=== PATIENT | male | born 1970 | race Caucasian/White ===

== ENCOUNTER 2019-05-23 09:08 | Emergency (ER) | payer OTHER, BC ==
[2019-05-23 09:12] VITALS: BP 152/104; PULSE 75; RESP 18; TEMP 97.5
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
--- NOTE | 2019-05-23 09:55 | XR ---
EXAMINATION TYPE: XR tibia fibula LT DATE OF EXAM: 05/23/2019 COMPARISON: NONE HISTORY: Pain TECHNIQUE: Two views are submitted. FINDINGS: The osseous structures are intact. Postsurgical changes are seen with significant arthropathy of the knee. Subcortical edema along the posterior margin of the tibia likely chronic.. IMPRESSION: 1. No acute osseous abnormality.
--- NOTE | 2019-05-23 09:57 | XR ---
EXAMINATION TYPE: XR wrist complete RT DATE OF EXAM: 05/23/2019 COMPARISON: NONE HISTORY: Pain TECHNIQUE: Four views submitted. FINDINGS: There is displaced intra-articular fracture of the distal radius. Remaining osseous structures intact . IMPRESSION: 1. Displaced intra-articular fracture distal radius.
[2019-05-23] MEDS ORDERED: ACET/COD 300 MG/30 MG STARTER PACK 6 TAB BTL PO STA (10:22)
== END 2019-05-23 10:36 | disposition home or self-care (01) ==
LOC: EC 09:08
DX: S52.501A Unspecified fracture of the lower end of right radius, initial encounter for closed fracture (principal); S80.812A Abrasion, left lower leg, initial encounter; K21.9 Gastro-esophageal reflux disease without esophagitis; E78.5 Hyperlipidemia, unspecified; F17.200 Nicotine dependence, unspecified, uncomplicated; Z96.652 Presence of left artificial knee joint; Z79.899 Other long term (current) drug therapy; V89.2XXA Person injured in unspecified motor-vehicle accident, traffic, initial encounter; Y92.89 Other specified places as the place of occurrence of the external cause
CPT/HCPCS: 29125; 99283

== ENCOUNTER → 2022-08-27 | Outpatient (CLI) | payer BC ==
--- NOTE | 2022-08-27 09:37 | US ---
EXAMINATION TYPE: US abdomen complete DATE OF EXAM: 08/27/2022 COMPARISON: NONE CLINICAL HISTORY: K21.9 GERD. TECHNIQUE: Multiple sonographic images of the abdomen are obtained. 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 No acute abdomen ultrasound abnormality
== END | disposition home or self-care (01) ==
LOC: RADUSWWP 07:12
PROVIDERS: ATTEND Internal Medicine
DX: K21.9 Gastro-esophageal reflux disease without esophagitis (principal)
CPT/HCPCS: 76700

== ENCOUNTER 2022-09-03 10:13 | Day surgery (SDC) | payer BC ==
[2022-09-01 09:37] VITALS: BMI 27.9
[~2022-09-03 10:13] MED LIST: LACTATED RINGERS 1,000 ML IV SCH
[2022-09-03 11:34] VITALS: TEMP 97.1
[2022-09-03] MEDS ORDERED: LACTATED RINGERS 1,000 ML IV ONE (11:39)
[2022-09-03] MEDS ORDERED: LIDOCAINE 2% INJ 20 MG/ML (2 ML VIAL) ONE (12:24)
[2022-09-03] MEDS ORDERED: PROPOFOL 10 MG/ML 20 ML VIAL IV ONE (12:24)
--- NOTE | 2022-09-03 12:43 | P.PCN ---
Date of Procedure: 09/03/22 Procedure(s) Performed: BRIEF HISTORY: Patient is a 52-year-old, pleasant, in scheduled for an upper endoscopy as a part of evaluation of worsening reflux symptoms for the last several months duration. He does have long-standing history of GERD and has been on lansoprazole 30 mg daily.. PROCEDURE PERFORMED: Esophagogastroduodenoscopy with biopsy. PREOPERATIVE DIAGNOSIS: Long-standing history of GERD. IV sedation per anesthesia. PROCEDURE: After informed consent was obtained, the patient was brought into the endoscopy unit. IV sedation was administered by Anesthesia under continuous monitoring. Initially the Olympus GIF-140 video endoscope was inserted into the mouth. Esophagus intubated without any difficulty. It was gradually advanced into the stomach and duodenum and carefully examined. The bulb and the second part of the duodenum appeared normal. The scope at this time was withdrawn to the stomach, adequately insufflated with air, and upon careful examination, mucosa of the antrum, body, cardia and the fundus appeared normal. The scope was then withdrawn into the esophagus. Moderate size hiatal hernia noted. The GE junction was located at 33 cm from the incisors. It was a long segment of Green's esophagus extending from 28-30 cm from the incisors and multiple biopsies were done from this area. The were no erosions or ulcerations seen. Rest of esophagus appeared normal and the patient tolerated the procedure well. IMPRESSION: 1. 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 2. Moderate size hiatal hernia.. RECOMMENDATIONS: The findings of this examination were discussed with the patient as well as his family. He was advised to follow with the biopsy results. In the meantime he was changed to lansoprazole 30 mg half hour before dinnertime and follow antireflux measures.. If the biopsy confirms the presence of Green's esophagus he can have a repeat upper endoscopy in 3 years
[2022-09-03 13:24] VITALS: BP 145/82; PULSE 75; RESP 20
== END 2022-09-03 13:33 ==
LOC: ORWHC2ENDO 10:13
PROVIDERS: ATTEND Internal Medicine Gastroenterology
DX: K22.70 Barrett's esophagus without dysplasia (principal); K44.9 Diaphragmatic hernia without obstruction or gangrene; K21.00 Gastro-esophageal reflux disease with esophagitis, without bleeding; Z79.899 Other long term (current) drug therapy
CPT/HCPCS: 88305; 43239; J2704; J2001

== ENCOUNTER → 2024-09-26 | Outpatient (CLI) | payer BC ==
--- NOTE | 2024-09-26 13:59 | CA ---
Stress Echo Report Dimas Ugalde Age: 54 Gender: M : 1970 Exam Date: 09/26/2024 11:12 Exam Location: [place] [facility] Ht (in): 70 Wt (lb): 180 Ordering Physician: Ad Tejada DO Referring Physician: Ad Tejada DO [place]cass Splitter: Edie Olvera RDCS Technologist Procedure CPT: Indication: R07.89 other chest pain ICD-9 Codes: Rhythm: Patient History: CHEST PAIN, DIFFICULTY IN BREATHING, NUMBNESS IN FACE/NECK, FAMILY HX OF HEART DISEASE, HYPERCHOLESTEROLEMIA, PRIOR SMOKER Cardiac Medications: Medications in past 24 hours: Contrast: Stress Results Protocol: Mehdi Total dose(mL): Exercise Duration (min:sec): 10:[address] Depression (mm): Angina Score: Clifford Score: METS: 12.1 Resting HR: 74 Resting BP: 132 / 86 Peak HR: 134 Peak BP: 204 / 99 Max Predicted HR: 167 80 % Max Predicted HR Target HR: 142 Double Product: [id number] Stress Summary: BP Response: Reason for Termination: MAX EXERTION - UNABLE TO CONTINUE Cardiac Symptoms: NO SYMPTOMS ECG Analysis Resting ECG: Stress ECG: Arrhythmia: Echo Analysis Resting Echo: Peak Echo Analysis: MEASUREMENTS (Male/Female) Normal Values CONCLUSIONS Excellent exercise tolerance Normal electrocardiogram stress testing to the level of heart rate achieved which is about 80% of maximum predicted heart Normal echocardiogram stress testing to the level of heart rate achieved which is 80% of maximal predicted heart Overall normal electrocardiogram and echocardiogram at 80% of maximum predicted heart Dr. Curt Powell MD (Electronically Signed) Final Date: 26 September 2024 13:58
== END | disposition home or self-care (01) ==
LOC: RADNMMAIN 09:33
PROVIDERS: ATTEND Internal Medicine
DX: R07.89 Other chest pain (principal)
CPT/HCPCS: 93351

== ENCOUNTER → 2024-09-26 | Outpatient (CLI) | payer BC ==
--- NOTE | 2024-09-26 10:51 | CTL ---
EXAMINATION TYPE: CT Low Dose Lung DATE OF EXAM ORDERED: 09/26/2024 COMPARISON: None CLINICAL INDICATION: Male, 54 years old with history of Z12.2 LUNG CA SCR Z87.891 FORMER SMOKER; [facility], HISTORY OF SMOKER, Lung cancer screening, History of Smoking/tobacco use. TECHNIQUE: Low dose computed tomography scan was performed through the chest at 1 mm thick sections a nd reconstructed images in multiple planes at 1 mm and [address] DLP: [address] CTDI: 3.6 mGy Automated exposure control for dose reduction was used. CT DIAGNOSTIC QUALITY: Satisfactory FINDINGS: Nodules: No clinically significant pulmonary nodules. LUNGS: COPD: Severity: None Fibrosis: Severity: None Lymph nodes: None Other findings: Fat filled right Bochdalek hernia. RIGHT PLEURAL SPACE: Effusion: None Calcification: None Thickening: None Pneumothorax: None LEFT PLEURAL SPACE: Effusion: None Calcification: None Thickening: None Pneumothorax: None HEART: Heart Size: Normal Coronary Calcification: None Pericardial Effusion: None OTHER FINDINGS: Upper abdomen: Large hiatal hernia containing third of the stomach intrathoracically. Gallbladder is surgically absent. Bony thorax: DISH of the thoracic spine. Supraclavicular region: None Other: Minimal bilateral gynecomastia. IMPRESSION: 1. No clinically significant pulmonary nodules. 2. Large hiatal hernia containing third of the stomach intrathoracically. CT LUNG RAD AND CT CHEST RECOMMENDATION: Lung-Rad 1 Negative: Continue annual screening with LDCT in 12 months. S Modifier (other clinically significant findings): [facility], , 09/26/2024 10:49 AM
== END | disposition home or self-care (01) ==
LOC: RADCTMAIN 09:28
PROVIDERS: ATTEND Internal Medicine
DX: Z12.2 Encounter for screening for malignant neoplasm of respiratory organs (principal); K44.9 Diaphragmatic hernia without obstruction or gangrene; N62 Hypertrophy of breast; Z87.891 Personal history of nicotine dependence
CPT/HCPCS: 71271